=== PATIENT | male | born 1985 | race Caucasian/White ===

== ENCOUNTER → 2022-09-17 | Outpatient (CLI) | payer OTHER, SELFPAY ==
--- NOTE | 2022-09-17 16:54 | CT_ITS ---
EXAM: CT MAXILLOFACIAL SINUSES WITHOUT INTRAVENOUS CONTRAST CLINICAL INDICATION: SINUSITIS TECHNIQUE: Helically acquired images were obtained of the maxillofacial sinuses without intravenous contrast. This CT exam was performed using one or more of the following dose reduction techniques: automated exposure control, adjustment of the mA and/or kV according to patient size, and/or use of iterative reconstruction technique. This report was created using [facility] report generation technology. RADIATION DOSE: CTDIvol = 33.06 mGy, DLP = 883.43 mGy-cm COMPARISON: None. FINDINGS: MAXILLARY SINUSES: Mild right maxillary sinus disease. Ostiomeatal complexes are normally formed. SPHENOID SINUSES: Clear. FRONTAL SINUSES: Clear. ETHMOID AIR CELLS: Clear. NASAL CAVITY/SEPTUM: Nasal septum is midline. Nasal turbinates are unremarkable. 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 ORBITS: Unremarkable. DENTAL: Unremarkable as visualized. No periodontal osseous erosion. CT/Sinus/Facial Bone IMPRESSION: Mild right maxillary sinus disease. Electronically Signed: Lenin Pruitt MD at 17:24 EST ,
== END | disposition home or self-care (01) ==
PROVIDERS: PCP Internal Medicine; Referring Provider Otolaryngology; Visit Provider Otolaryngology
DX: J32.0 Chronic maxillary sinusitis (principal)
CPT/HCPCS: 70486

== ENCOUNTER → 2022-10-10 | Outpatient (CLI) | payer OTHER, SELFPAY | END | disposition home or self-care (01) | LOC: LABSPEC 09:28 | PROVIDERS: PCP Internal Medicine; Visit Provider Otolaryngology | DX: H60.90 Unspecified otitis externa, unspecified ear (principal) | CPT/HCPCS: 87070; 87075; 87077; 87186; 87205 ==